=== PATIENT | male | born 1970 | race Caucasian/White ===

== ENCOUNTER 2019-07-04 08:22 | Day surgery (SDC) | payer OTHER ==
[~2019-07-04] VITALS: Ht 175.3 cm; Wt 90.9 kg
[2019-07-04] MEDS ORDERED: LIPITOR40 MG PO (09:09)
[2019-07-04] MEDS ORDERED: PROZAC20 MG PO (09:10)
[2019-07-04] MEDS ORDERED: MUCINEX600 MG (09:11)
[2019-07-04] MEDS ORDERED: CLARITIN 10 MG10 MG PO (09:12)
[2019-07-04] MEDS ORDERED: LEVOXYL100 MCG PO (09:12)
[2019-07-04] MEDS ORDERED: OMEPRAZOLE20 M1 PO (09:13)
[2019-07-04] MEDS ORDERED: MOBIC7.5 MG (09:13)
[2019-07-04 09:32] VITALS: BP 124/76; Ht 175.3 cm; Wt 90.9 kg
--- NOTE | 2019-07-04 12:39 | NUR ---
DILATE ESOPHAGUS WITH 10-11-12 CRE BALLOON UP TO 35.
--- NOTE | 2019-07-04 16:00 | NUR ---
1403 DRESSED, AWAKE & ALERT. GIVEN DISCHARGE INFORMATION INCLUDING MED REC, SHEET LISTING NSAIDS TO AVOID & [facility] POST ENDOSCOPY D/C INSTRUCTIONS WELL H&P, OP NOTE, POST PROCEDURE NOTE, & PHOTOS FOR ADC RECORDS. RELEASED AMBULATORY FROM UNIT WITH 2 ADC GUARDS TO [facility]. Urban BRYANT R.N.
--- NOTE | 2019-07-05 12:25 | OP ---
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 POSTOPERATIVE DIAGNOSES: 1. 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 2. Moderate antral gastritis with erosions. 2. Rule out Hammond esophagus. PROCEDURE: 1. Esophagogastroduodenoscopy with antral and distal esophageal biopsy. 2. Esophageal dilation with a through the catheter balloon to 35-Gambian. SURGEON: Daina Louise MD SALES ACTIVITY MANAGER: None. BLOOD LOSS: Minimal. ANESTHESIA: IV sedation. COMPLICATIONS: None. The risks, possible complications, and alternatives to the procedure were explained to the patient. He elects to proceed. Specifically discussed was the risk of esophageal perforation. ENDOSCOPIC COURSE: The patient was conveyed to the endoscopy suite electively on 07/04/2019. IV sedation was induced by the anesthesia staff. A bite block was inserted. A gastroscope was inserted into the mouth. It was advanced easily into the hypopharynx. The esophagus was easily intubated as were the stomach and duodenum. Upon withdrawal, retroflexed and angulus views were obtained. Antral biopsies were obtained. I withdrew into the cardia of the stomach. I advanced a through the catheter balloon. I then withdrew to the strictured area, which was at the very proximal esophagus. I then balloon dilated to 35-Gambian times 3 minutes. The gastroscope and balloon dilator were then removed. I then readvanced the gastroscope. There had been no evidence of false passage or perforation. Cold endoscopic biopsies were obtained at the distal esophagus to rule out Hammond's esophagus. I then removed the endoscope under direct vision. The patient was then conveyed back to his room. He may require more aggressive esophageal dilations in the future. There is no need for him to follow up with me in the office. I can see him on rounds out at the [facility]. TRANSINT:[id number] Voice Confirmation ID: [id number] DOCUMENT ID: [id number] OPERATIVE REPORT [id number] MEGANMARGIE DAINA LOUISE MD at 1225 CC: BOBBY SMART [id number] DICTATION DATE: 07/04/19 1252 DIRECTOR OF FINANCIAL REPORTING: 07/04/19 1301 [facility] [place] 07/04/19 [id number] [place] [address]
--- NOTE | 2019-07-05 12:25 | HP ---
PATIENT: MARGIE GUZMAN MEDICAL RECORD: [id number] ACCOUNT: [id number] LOCATION:[facility] : 66 ADMISSION DATE: 07/04/19 PCP: No PCP HISTORY AND PHYSICAL EXAMINATION CHIEF COMPLAINT: Difficulty swallowing. HISTORY OF PRESENT ILLNESS: I saw the patient out at the custodial. He has had radiation to the neck as well as laryngectomy. He has dysphagia at the level of cricopharyngeus. He is going to require balloon dilation rather than bougienage. He has a markedly limited range of motion of the neck due to the radiation he has had in the past. He has also had a cervical fusion in the past. I saw him out at the custodial. I recommended that he have this procedure performed at a hospital. CURRENT MEDICATIONS: Atorvastatin, fluoxetine, guaifenesin, levothyroxine, loratadine, meloxicam, omeprazole, triamcinolone. PAST MEDICAL AND SURGICAL HISTORY: Gastroesophageal reflux, history of CABG, COPD, hypothyroidism on replacement therapy, cholecystectomy, history of hernia repair. SOCIAL HISTORY: He is currently a nonsmoker. ALLERGIES: IODINATED CONTRAST. PHYSICAL EXAMINATION: GENERAL: The patient does not appear acutely ill. He does appear chronically ill. VITAL SIGNS: Reviewed. EARS: External ears appear normal. EYES: Extraocular movements are intact. NECK: Laryngectomy changes. Erythema of the neck. Markedly limited range of motion. PULMONARY: Nonlabored. IMPRESSION: Dysphagia secondary to radiation to the neck. PLAN: EGD with esophageal dilation. TRANSINT:[id number] Voice Confirmation ID: [id number] DOCUMENT ID: [id number] DAINA LOUISE MD at 1225 CC: [id number] DICTATION DATE: 07/04/19 1224 MARRIAGE AND FAMILY TEACHER: 07/04/19 1238 [facility] 07/04/[address] [address]
== END 2019-07-04 14:03 | disposition home or self-care (01) ==
LOC: D.OPS 08:22
PROVIDERS: ATTEND Surgery
DX: R13.19 Other dysphagia (principal); K29.00 Acute gastritis without bleeding

== ENCOUNTER → 2020-07-08 09:09 | Outpatient (CLI) | payer OTHER ==
[2020-01-03 08:20] VITALS: BMI 29.0
[~2020-07-08 09:09] MED LIST: CLARITIN 10 MG10 MG PO; LEVOXYL100 MCG PO; LIPITOR40 MG PO; MECLIZINE HCL25 MG PO; MOBIC7.5 MG; MUCINEX600 MG; OMEPRAZOLE20 M1 PO; PROZAC20 MG PO; QUININE SULFAT324 MG PO
== END | disposition home or self-care (01) ==
LOC: D.LAB 09:09
PROVIDERS: ATTEND Surgery
DX: Z11.59 Encounter for screening for other viral diseases (principal)

== ENCOUNTER 2020-07-09 06:17 | Day surgery (SDC) | payer OTHER ==
[~2020-07-09] VITALS: Ht 175.3 cm; Wt 90.9 kg
--- NOTE | ~2020-07-09 | OP ---
PATIENT NAME: MARGIE GUZMAN MEDICAL RECORD: [id number] :66 LOCATION:D.OPS ADMISSION DATE: SURGEON: TUCKER LOUISE MD DATE OF OPERATION: 07/09/2020 PREOPERATIVE DIAGNOSES: 1. Recurrent dysphagia. 2. 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 3. Gastroesophageal reflux disease. POSTOPERATIVE DIAGNOSES: 1. Recurrent dysphagia. 2. 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 3. Gastroesophageal reflux disease. 4. Moderate prepyloric gastritis with one erosion. PROCEDURES: 1. Esophagogastroduodenoscopy with antral and distal esophageal biopsies. 2. Esophageal dilation with a aufwxpr-ixc-tvdylkhf balloon to 54-Ukrainian. SURGEON: Tucker Louise MD RN FLOAT: None. BLOOD LOSS: Minimal. ANESTHESIA: IV sedation. COMPLICATIONS: None. The risks, possible complications and alternatives to the procedure were explained to the patient. He elects to proceed. Discussion specifically included, but was not limited to, bleeding requiring emergency reoperation, infection, endoscopic perforation. ENDOSCOPIC COURSE: The patient was conveyed to endoscopy suite electively on 07/09/2020, IV sedation was induced by the anesthesia staff. A bite block was inserted. A gastroscope was inserted into the mouth. It was advanced easily into the hypopharynx. The esophagus was easily intubated as were the stomach and duodenum. Upon withdrawal, retroflexed and angulus views were obtained. Antral biopsies were obtained to rule out H. pylori. I then slowly withdrew the endoscope. I advanced a kdruygh-cuf-khhqzoyo balloon. I sequentially dilated the entire length of the esophagus to 54-Ukrainian. Particularly in the neck, I dilated for a longer time to 54-Ukrainian. The gastroscope and balloon dilator were removed. The balloon dilator was removed and the gastroscope was then readvanced. Multiple biopsies were obtained at the EG junction to rule out Hammond's esophagus. There had been no evidence of false passage or perforation. No evidence of an endoscopic complication. The endoscope was then withdrawn under direct vision. The [facility] There is no need for him to see me in the office unless he develops a complication related to this operative procedure. He was to undergo a colonoscopy today due to family history of colon cancer. He has also had hematochezia and history of colon OPERATIVE REPORT [id number] MARGIE GUZMAN polyps. Unfortunately, he was not prepped for the colonoscopy today, so this will need to be done at another time. TRANSINT:[id number] Voice Confirmation ID: [id number] DOCUMENT ID: [id number] TUCKER LOUISE MD CC: BOBBY Saucedo [id number] DICTATION DATE: 07/09/20 1048 BENEFITS PROCESSOR: 07/09/20 1123 [facility] [place] 07/09/20 [place] [id number] [place] [id number]
--- NOTE | ~2020-07-09 | HP ---
PATIENT: MARGIE GUZMAN MEDICAL RECORD: [id number] ACCOUNT: [id number] LOCATION:DJustinOPS : 66 ADMISSION DATE: 07/09/20 PCP: No PCP HISTORY AND PHYSICAL EXAMINATION HISTORY OF PRESENT ILLNESS: The patient has recurrent dysphagia. He has undergone esophageal dilation in the past and he says that this really did not help with his dysphagia. He has significant gastroesophageal reflux. He was to undergo not only an EGD with dilation with also a colonoscopy due to history of colon polyps, hematochezia. However, he did not receive a bowel prep, so he will just undergo the upper endoscopy today. The risks, possible complications and alternatives to the procedure were explained to the patient. He elects to proceed. SOCIAL HISTORY: The patient is a nonsmoker. PAST MEDICAL AND SURGICAL HISTORY: COPD, he is on O2 at 2 liters. The patient has tracheostomy from prior laryngectomy. Questionable history of myocardial infarction back in 2002. He does have a heart murmur. He has undergone surgery multiple years ago for an ASD or VSD. Hypothyroidism, on replacement therapy. HOME MEDICATIONS: Please see the nursing list. ALLERGIES: IVP CONTRAST. REVIEW OF SYSTEMS: Negative for CVA or seizures. Negative for diabetes or hepatitis. PHYSICAL EXAMINATION: GENERAL: The patient does not appear acutely ill. He does appear chronically ill. VITAL SIGNS: Reviewed. EARS: External ears appear normal. EYES: Extraocular movements are intact. NECK: He has tracheostomy. PULMONARY: Mildly labored. IMPRESSION: 1. Gastroesophageal reflux. 2. Dysphagia. PLAN: EGD with colonoscopy. TRANSINT:[id number] Voice Confirmation ID: [id number] DOCUMENT ID: [id number] HISTORY AND PHYSICAL [id number] MARGIE GUZAMN ROBERT MD CC: DaniaLBOBBY Cameron [id number] DICTATION DATE: 07/09/20 1004 MATLAB DEVELOPER: 07/09/20 1101 [facility] [place] 07/09/[address] [address]
[~2020-07-09 06:17] MED LIST changes: -MECLIZINE HCL25 MG PO
[2020-07-09 07:02] LABS: HEMOGLOBIN 13.8 g/dL (13.5-17.5); MCH 31.6 pg (26.0-34.0); MCHC 33.7 g/dL (31.0-37.0); MCV 93.8 fL (80.0-100.0); MEAN PLATELET VOLUME 9.5 fL (7.4-10.4); RBC 4.37 10x6/uL (4.20-6.10); RDW 13.4 % (11.5-14.5); WBC 6.6 10x3/uL (4.8-10.8)
[2020-07-09] MEDS ORDERED: MECLIZINE HCL25 MG PO (07:46)
[2020-07-09 07:58] VITALS: BP 124/73; Ht 175.3 cm; Wt 90.9 kg
== END 2020-07-09 11:44 | disposition home or self-care (01) ==
LOC: D.OPS 06:17
PROVIDERS: Anesthesiology; ATTEND Surgery
DX: R13.10 Dysphagia, unspecified (principal); K21.9 Gastro-esophageal reflux disease without esophagitis; Z85.21 Personal history of malignant neoplasm of larynx; K29.70 Gastritis, unspecified, without bleeding; J44.9 Chronic obstructive pulmonary disease, unspecified; Z99.81 Dependence on supplemental oxygen

== ENCOUNTER 2020-08-06 07:54 | Day surgery (SDC) | payer OTHER ==
[~2020-08-06] VITALS: Ht 175.3 cm; Wt 90.9 kg
--- NOTE | ~2020-08-06 | OP ---
PATIENT NAME: MARGIE GUZMAN MEDICAL RECORD: [id number] :66 LOCATION:D.OPS ADMISSION DATE: SURGEON: TUCKER LOUISE MD DATE OF OPERATION: 08/06/2020 PRINCIPAL DIAGNOSES: 1. Hematochezia. 2. History of colon polyps, in need of surveillance colonoscopy. POSTOPERATIVE DIAGNOSES: 1. Hematochezia. 2. History of colon polyps, in need of surveillance colonoscopy. 3. One new sessile polyp, 1.0 cm. PROCEDURES: 1. Total colonoscopy to cecum. 2. Hot biopsy forceps polypectomy times 1. SURGEON: Tucker Louise MD VENDOR MANAGEMENT ASSOCIATE: None. BLOOD LOSS: Minimal. ANESTHESIA: IV sedation. COMPLICATIONS: None. The risks, possible complications and alternatives to the procedure were explained to the patient. He elects to proceed. ENDOSCOPIC COURSE: The patient was conveyed to endoscopy suite electively on 08/06/2020. IV sedation was induced by the anesthesia staff. The patient was placed in the Parkinson position. A digital rectal examination was performed. The prostate was firm, symmetric and without nodules. The prep was adequate. The colonoscope was inserted to the cecum. I intubated the ileocecal valve and the ileum appeared normal. I slowly withdrew the endoscope. I dragged the folds. I irrigated and aspirated extensively. A combination of normal imaging and narrow band imaging were utilized. One hot biopsy forceps polypectomy was performed and the polyp was removed in its entirety. A retroflexed view was obtained in the rectum. I then unretroflexed the scope and removed it under direct vision. There is no need for the patient to follow up with me in the office unless he develops a complication related to this endoscopic procedure. I think, the hematochezia is likely due to bleeding internal hemorrhoids. This can be managed symptomatically. Plan for his next colonoscopy to take place in 3 years. TRANSINT:[id number] Voice Confirmation ID: [id number] DOCUMENT ID: [id number] OPERATIVE REPORT [id number] MEGANMARGIE TUCKER LOUISE MD CC: [id number] DICTATION DATE: 08/06/20 1115 CLERICAL SUPPORT SPECIALIST: 08/06/20 1218 [facility] [address] [place] [address]
--- NOTE | ~2020-08-06 | HP ---
PATIENT: MARGIE GUZMAN MEDICAL RECORD: [id number] ACCOUNT: [id number] LOCATION:DJustinCHAVA : 66 ADMISSION DATE: 08/06/20 PCP: No PCP HISTORY AND PHYSICAL EXAMINATION HISTORY OF PRESENT ILLNESS: The patient has a history of colon polyps as well as hematochezia. The patient has undergone colonoscopy at the time of EGD; however, the bowel prep was not performed. He underwent a lateral internal sphincterotomy by me back in January and he states that the procedure went well. I am going to plan for a surveillance colonoscopy. PAST MEDICAL AND SURGICAL HISTORY: Heart surgery, laryngectomy, hypothyroidism, on replacement therapy, gastroesophageal reflux, heart murmur, questionable myocardial infarction, COPD, tracheostomy, coronary artery disease. SOCIAL HISTORY: Nonsmoker. HOME MEDICATIONS: Please see the nursing list. ALLERGIES: IODINE. PHYSICAL EXAMINATION: GENERAL: The patient does not appear acutely ill. He does not appear chronically ill. VITAL SIGNS: Reviewed. EARS: External ears appear normal. EYES: Extraocular movements are intact. NECK: Tracheostomy changes are present. He talks with an appliance. IMPRESSION: 1. History of colon polyps, in need of surveillance colonoscopy. 2. Hematochezia. PLAN: Colonoscopy. TRANSINT:[id number] Voice Confirmation ID: [id number] DOCUMENT ID: [id number] DAINA LOUISE MD CC: [id number] DICTATION DATE: 08/06/20 1028 [employer]ING [employer] NET: 08/06/20 1128 [facility] [address] [place] [address]
[~2020-08-06 07:54] MED LIST changes: +MECLIZINE HCL25 MG PO
[2020-08-06 09:19] VITALS: Ht 175.3 cm; Wt 90.9 kg
[2020-08-06 09:53] LABS: HEMATOCRIT 51.2 % (42.0-54.0); HEMOGLOBIN 17.3 g/dL (13.5-17.5); MCH 32.2 pg (26.0-34.0); MCHC 33.8 g/dL (31.0-37.0); MCV 95.3 fL (80.0-100.0); MEAN PLATELET VOLUME 10.5 fL (7.4-10.4); RBC 5.37 10x6/uL (4.20-6.10); RDW 13.6 % (11.5-14.5); WBC 9.7 10x3/uL (4.8-10.8)
--- NOTE | 2020-08-06 15:33 | NUR ---
1135 IV DC'ED WITH CATH INTACT. DRESSING. ADC GUARDS X'S 2. A. MANNY R.N. 1145 DRESSED. AWAKE & ALERT. GIVEN DISCHARGE INSTRUCTIONS INCLUDING MED REC WITH MOBIC NOTED TO BE HELD 14 DAYS. SHEET LISTING NSAIDS TO AVOID FOR 14 DAYS. PT VOICED UNDERSTANDING. RELEASED AMBULATORY FROM [facility]PS WITH ADC GUARDS X'S 2. A. MANNY R.N.
== END 2020-08-06 11:45 ==
LOC: D.OPS 07:54
PROVIDERS: Anesthesiology; ATTEND Surgery
DX: K92.1 Melena (principal); Z86.010 Personal history of colon polyps